=== PATIENT | male | born 1975 | race African-American/Black ===

== ENCOUNTER 2017-02-13 14:34 | Emergency (ER) | payer BC ==
[~2017-02-13] VITALS: Ht 165.1 cm; Wt 71.7 kg
== END 2017-02-13 15:00 | disposition home or self-care (01) ==
LOC: ED 14:34
DX: R53.1 Weakness (principal)
CPT/HCPCS: 99281

== ENCOUNTER 2017-02-14 23:03 | Emergency (ER) | payer BC ==
[~2017-02-14] VITALS: Ht 170.2 cm; Wt 67.1 kg
== END 2017-02-14 23:41 | disposition home or self-care (01) ==
LOC: ED 23:03
DX: R11.10 Vomiting, unspecified (principal); R19.7 Diarrhea, unspecified; R50.9 Fever, unspecified
CPT/HCPCS: 99281

== ENCOUNTER 2017-12-28 11:33 | Emergency (ER) | payer OTHER ==
[~2017-12-28] VITALS: Ht 165.1 cm; Wt 66.7 kg
[2017-12-28 11:39] VITALS: BP 141/86
[2017-12-28 12:14] LABS: PLATELET COUNT 233 K/uL (142-355)
[2017-12-28 12:19] LABS: POTASSIUM 4.2 mmol/L (3.6-5.2)
[2017-12-28 13:16] VITALS: TEMP 98.3
== END 2017-12-28 13:18 | disposition home or self-care (01) ==
LOC: ED 11:33
DX: M54.31 Sciatica, right side (principal); M51.86 Other intervertebral disc disorders, lumbar region
CPT/HCPCS: 36415; 80053; 81000; 85027; 99283; J1100; J1885

== ENCOUNTER 2020-04-21 11:43 | Emergency (ER) | payer OTHER ==
[~2020-04-21] VITALS: Ht 165.1 cm; Wt 66.7 kg
[2020-04-21 11:54] VITALS: TEMP 99.1
[2020-04-21 12:15] LABS: PLATELET COUNT 123 K/uL (142-355)
[2020-04-21 12:22] LABS: POTASSIUM 3.7 mmol/L (3.6-5.2); SODIUM 136 mmol/L (136-145)
[2020-04-21 12:30] LABS: PARTIAL THROMBOPLASTIN TIME 25.8 SECONDS (24.5-33.6)
[2020-04-21 14:57] VITALS: BP 151/82
== END 2020-04-21 14:58 | disposition home or self-care (01) ==
LOC: ED 11:43
PROVIDERS: Hospitalist
DX: R53.1 Weakness (principal); E86.0 Dehydration; M54.5 Low back pain; G89.29 Other chronic pain; N39.0 Urinary tract infection, site not specified
CPT/HCPCS: 80053; 81000; 82550; 83880; 84484; 85027; 85610; 85730; 93005; 96361; 96365; 99284; J0696